=== PATIENT | female | born 1985 | race Caucasian/White ===

== ENCOUNTER 2016-06-30 10:25 | Inpatient (IN) | payer OTHER ==
[2016-06-30] MEDS: ELECTROLYTE-148 SOLN 1,000 ML IV SCH (10:35)
--- NOTE | 2016-06-30 10:56 | HP ---
Admitting History and Physical - Admission Chief Complaint: for cs History of Present Illness: 31 with breech for cs. Pt of [facility], hiv neg, gbs neg, rpr neg. Pt has been scanned by [facility]. 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: Alzheimer's, CVA, Dementia, Migraine, Multiple Sclerosis, Peripheral Neuropathy, Parkinson's, Seizure, Syncope, TIA, Vertigo, Other Cardiovascular: No: AFIB, Aneurysm, Aortic Insufficiency, Aortic Stenosis, CAD, CHF, Deep Vein Thrombosis, HTN, Hyperlipdemia, TN, Mitral Insufficiency, Mitral Stenosis, Murmur, Pulmonary Hypertension, Other Pulmonary: No: Asthma, Bronchitis, Cancer, COPD, O2 Dependent, Pneumonia, Previously Intubated, Pulmonary Embolus, Pulmonary Fibrosis, Sleep Apnea, Other Gastrointestinal: No: Ascites, Cancer, Constipation, Crohn's Disease, Diverticulitis, Diverticulosis, Esophageal Varices, Gastritis, GERD, GI Bleed, Hemorrhoids, Hiatal Hernia, Inflamatory Bowel Disease, Irritable Bowel Disease, Pancreatitis, Peptic Ulcer Disease, Ulcerative Colitis, Other Hepatobiliary: No: Cirrhosis, Cholelithiasis, Cholecystitis, Choledocholithiasis , Hepatitis A, Hepatitis B, Hepatitis C, Other Renal/: No: Renal Failure, Renal Inusuff, BPH, Cancer, Hematuria, Hemodialysis , Neurogenic Bladder, Renal Calculi, UTI, Other Reproductive: No: Ectopic , Endometriosis, Fibroids, PID, Polycystic Ovary Syndrome, Postmenopausal, Other Heme/Onc: No: Anemia, B12 Deficiency, Bleeding Disorder, Cancer, Current Chemotherapy, Current Radiation Therapy, Hemochromatosis, Hypercoaguable State, Myeloproliferative Synd, Sickle Cell Disease, Sickle Cell Trait, Thrombocytopenia, Other Infectious Disease: No: AIDS, C-Diff, Herpes Zoster, HIV, MRSA, STD's, Tuberculosis, VREF, Other Musculoskeletal: No: Bursitis, Chronic low back pain, Hemiparesis, Hemiplegia, Osteoarthritis, Paraplegia, Other ENT: No: Allergic Rhinitis, Sinusitis, Other Dermatology: No: Basal Cell, Cellulitis, Eczema, Melanoma, Psoriasis, Squamous Cell, Other - Past Surgical History Past Surgical History: No: None, AAA Repair, AICD, Amputation, Appendectomy, Arthrosocopy, AV Fistula/Graft, Bariatric Surgery, Breast Biopsy, Bypass, CABG, Carotid Endarterectomy, Cataract Removal, Cholecystectomy, Colectomy, Colonoscopy, Colostomy, Craniotomy, , Cystectomy, Hernia Repair, Hysterectomy, Ileal Conduit, Ileosotomy, Joint Replacement, Kidney Transplant, Laminectomy, Liver Transplant, Mastectomy, Nephrectomy, Oopherectomy, Orchiectomy, Permanent Pacemaker, Prostatectomy, Splenectomy, Stent, Thoracotomy , TURP, Tonsillectomy, Tubal Ligation, Upper Endoscopy, Valve Replacement, Vasectomy, Vein Stripping/Ligation - Advance Directives Advance Directives: No: Living Will, Health Care Proxy, DNR, Organ Donor, Tissue Donor, MOLST - Alcohol/Substance Use History of Substance Use: denies: None, Cocaine, Heroin, Marijuana, Prescription , Tranquilizers - Social History Usual Living Arrangement: No: Alone, With Spouse, With Parent, With Significant Other, With Child, Assisted Living, Senior Living, Other Review of Systems - Review of Systems Constitutional: denies: No Symptoms, Chills, Diaphoresis, Fever, Lethargy, Loss of Appetite, Malaise, Night Sweats, Unintentional Wgt. Loss, Weakness, Other Eyes: denies: No Symptoms, Blind Spots, Blurred Vision, Double Vision, Eye Pain , Floaters, Photophobia, Recent Change in Vision, Other HENT: denies: No Symptoms, Difficult Swallowing, Ear Discharge, Ear Pain, Epistaxis, Gingival Bleeding, Hearing Loss, Mouth Swelling, Nasal Congestion, Ocular Prosthesis, Throat Pain, Toothache, Ringing in Ears, Other Neck: denies: No Symptoms, Decreased ROM, Lumps, Pain on Movement, Stiffness, Swollen Glands, Tenderness, Other Cardiovascular: denies: No Symptoms, Chest Pain, Edema, Palpitations, Shortness of Breath, Other Respiratory: denies: No Symptoms, Cough, Exercise Intolerance, Hemoptysis, Orthopnea, PND, Snoring, SOB, SOB on Exertion, Wheezing, Other Gastrointestinal: denies: No Symptoms, Abdominal Pain, Bloating, Constipation, Diarrhea, Dysphagia, Indigestion, Melena, Nausea, Rectal Bleeding, Vomiting, Vomiting Blood, Other Genitourinary: denies: No Symptoms, Burning, Discharge, Dysuria, Flank Pain, Frequency, Hematuria, Incontinence, Lesions, Menses, Pain, Testicular Mass, Testicular Pain, Testicular Swelling, Urgency, Vaginal Bleeding, Other Breasts: denies: No Symptoms Reported, See HPI, Breast Implants, Discharge from Nipple, Lumps, Pain, Skin Changes, Other Integumentary: denies: No Symptoms, Blister, Bruising, Change in Color, Eczema, Erythema, Incision, Lesions, Lump, Pallor, Pruritis, Rash, Wound, Other Neurological: denies: No Symptoms, Change in LOC, Change in Speech, Confusion, Dizziness, Headache, Incoordination, Numbness, Parasthesia, Pre-Existing Deficit , Seizure, Syncope, Tremors, Unsteady Gait, Weakness, Other Endocrine: denies: No Symptoms, Excessive Sweating, Flushing, Increased Hunger, Increased Thirst, Intolerance to Cold, Intolerance to Heat, Unexplained Weight Gain, Unexplained Weight Loss, Other Hematology/Lymphatic: denies: No Symptoms, Easily Bruised, Excessive Bleeding, Swollen Glands, Other Physical Examination Constitutional: Yes: Well Nourished Eyes: Yes: WNL HENT: Yes: WNL Neck: Yes: WNL Cardiovascular: Yes: WNL Respiratory: Yes: WNL Gastrointestinal: Yes: WNL ...Rectal Exam: Yes: WNL Renal/: Yes: WNL Breast(s): Yes: WNL Assessment/Plan as sabove consents \labs
[2016-06-30 11:38] VITALS: BMI 28.5
[2016-06-30] MEDS ORDERED: morphine SULFATE/Preservative Free 0.5 MG/ML (1cc Syringe) SPIN ONE (12:41)
[2016-06-30] MEDS ORDERED: ONDANSETRON 4 MG/2 ML VIAL IVPB PRN (12:48)
[2016-06-30] MEDS ORDERED: IBUPROFEN 800 MG/8 ML IJ IVPB PRN (13:03)
[2016-06-30] MEDS ORDERED: CITRIC ACID/SODIUM CITRATE 30 ML UNIT-DOSE CUP PO ONE (13:03)
[2016-06-30] MEDS ORDERED: oxyCODONE HCL 5 MG TABLET PO PRN (13:03)
[2016-06-30] MEDS ORDERED: IBUPROFEN 600 MG TABLET (FP) PO PRN (13:03)
[2016-06-30] MEDS ORDERED: METHYLERGONOVINE MALEATE 0.2 MG/1 ML AMP IM PRN (13:03)
[2016-06-30] MEDS: OXYTOCIN 20 UNITS in 0.9% NS 1,000 ML IV SCH (14:16)
--- NOTE | 2016-07-01 07:52 | PN ---
Post Progress Note - Subjective Subjective: no c/o pain. voided once after soto is taken out . Post Day: 1 Type of Delivery: Primary C/S Vital Signs: Vital Signs Temperature 98.5 F 07/01/16 06:00 Pulse Rate 70 07/01/16 06:00 Respiratory Rate 20 07/01/16 06:00 Blood Pressure 101/72 07/01/16 06:00 O2 Sat by Pulse Oximetry (%) Breast Exam: Yes: Soft, Other (BF ). No: Engorged Uterus: Yes: Fundus Firm, Fundus below umbilicus, Non-tender Incision: Yes: Dressing dry and intact. No: Redness, Oozing Abdomen/GI: Yes: Abdomen soft (bs active ), Tolerating PO (clear liquids ). No : Abdominal Distention, Tender, Passing flatus Lochia: Yes: Rubra Lochia, amount: Moderate Extremities: Yes: Calves non-tender Perineum: Yes: Intact Activity: Ambulating Other Findings, Remarks: RS cta Assessment/Plan stable. plan : post op cbc today.
[2016-07-01 08:43] LABS: BASOPHIL 0.2 % (0-2.0); EOSINOPHIL 0.6 % (0-4.5); MCH 31.6 pg (25.7-33.7); MEAN CELL VOLUME 92.8 fl (80-96); NEUTROPHILS 79.3 % (42.8-82.8); PLATELET COUNT 206 K/MM3 (134-434); RDW 13.5 % (11.6-15.6); WHITE BLOOD COUNT 11.6 K/mm3 (4.0-10.0)
--- NOTE | 2016-07-01 11:19 | PN ---
Progress Note (short form) - Note Progress Note: ANESTHESIOLOGY POST-OP CHECK 31F s/p under spinal anesthesia, POD #1. No acute complaints. Denies pain, backache, headache, N/V, numbness, weakness. Tolerating PO fluids, ambulating,. Vital Signs Temperature 98.7 F 07/01/16 09:08 Pulse Rate 82 07/01/16 09:08 Respiratory Rate 20 07/01/16 10:00 Blood Pressure 112/57 07/01/16 09:08 O2 Sat by Pulse Oximetry (%) Active Medications Acetaminophen (Tylenol -) 650 mg PO Q4H PRN PRN Reason: FEVER OR PAIN Bisacodyl (Dulcolax Suppository -) 10 mg RC PRN PRN PRN Reason: CONSTIPATION Diphenhydramine HCl (Benadryl Injection -) 25 mg IVPUSH Q4H PRN PRN Reason: Pruritis Oxytocin/Sodium Chloride (Normal Saline+20 Units Oxytocin -) 1,000 mls @ 125 mls/hr IV [facility] Last Admin: 06/30/16 14:16 Dose: 125 mls/hr Parenteral Electrolytes (Plasma-Lyte 148 -) 1,000 mls @ 125 mls/hr IV [facility] Last Admin: 06/30/16 10:35 Dose: 125 mls/hr Ibuprofen (Motrin -) 600 mg PO Q4H PRN PRN Reason: PAIN Ibuprofen (Motrin -) 600 mg PO Q4H PRN PRN Reason: PAIN Ibuprofen (Caldolor Injection -) 800 mg IVPB Q8H PRN PRN Reason: PAIN OR FEVER Last Admin: 07/01/16 05:40 Dose: 800 mg Methylergonovine Maleate (Methergine Injection -) 0.2 mg IM Q4H PRN PRN Reason: Excessive Bleeding (L&D) Oxycodone HCl (Roxicodone -) 10 mg PO Q4H PRN PRN Reason: PAIN LEVEL 6-10 Simethicone (Mylicon -) 80 mg PO Q4H PRN PRN Reason: GAS Gen: Awake, alert Ext: No motor or sensory deficits of b/l lower ext. No apparent anesthesia complications. Pain well controlled. Continue management as per primary team.
[2016-07-01] MEDS ORDERED: BISACODYL 10 MG SUPP.RECT RC PRN (13:04)
[2016-07-01] MEDS: SIMETHICONE 80 MG TAB.CHEW (FP) PO PRN ×2 (14:44→22:05)
[2016-07-01] MEDS: IBUPROFEN 600 MG TABLET (FP) PO PRN ×2 (14:45→22:06)
[2016-07-01] MEDS: ACETAMINOPHEN 325 MG TABLET (FP) PO PRN ×2 (14:46→22:07)
--- NOTE | 2016-07-02 06:18 | PN ---
Post Progress Note Post Day: 2 Type of Delivery: Primary C/S Vital Signs: Vital Signs Temperature 98.2 F 07/01/16 22:00 Pulse Rate 99 H 07/01/16 22:00 Respiratory Rate 18 07/01/16 22:00 Blood Pressure 115/71 07/01/16 22:00 O2 Sat by Pulse Oximetry (%) Breast Exam: Yes: Soft Uterus: Yes: Fundus Firm Incision: Yes: Dressing dry and intact Abdomen/GI: Yes: Abdomen soft Lochia: Yes: Rubra Lochia, amount: Small Extremities: Yes: Calves non-tender Perineum: Yes: Intact Activity: Ambulating - Labs Labs: CBC WBC 11.6 K/mm3 (4.0-10.0) H 07/01/16 07:30 RBC 3.41 M/mm3 (3.60-5.2) L 07/01/16 07:30 Hgb 10.8 GM/dL (10.7-15.3) 07/01/16 07:30 Hct 31.7 % (32.4-45.2) L 07/01/16 07:30 MCV 92.8 fl (80-96) 07/01/16 07:30 MCHC 34.0 g/dl (32.0-36.0) 07/01/16 07:30 RDW 13.5 % (11.6-15.6) 07/01/16 07:30 Plt Count 206 K/MM3 (134-434) 07/01/16 07:30 MPV 8.0 fl (7.5-11.1) 07/01/16 07:30 Neutrophils % 79.3 % (42.8-82.8) 07/01/16 07:30 Lymphocytes % 11.1 % (8-40) D 07/01/16 07:30 Monocytes % 8.8 % (3.8-10.2) 07/01/16 07:30 Eosinophils % 0.6 % (0-4.5) 07/01/16 07:30 Basophils % 0.2 % (0-2.0) 07/01/16 07:30 Assessment/Plan doing well oob reg diet pain control
--- NOTE | 2016-07-02 08:15 | OP ---
DATE OF OPERATION: DATE OF DICTATION: 07/01/2016 HISTORY OF PRESENT ILLNESS: This is a 31-year-old female at 39+ weeks with breech presentation. POSTOPERATIVE DIAGNOSIS: This is a 31-year-old female at 39+ weeks with breech presentation. PROCEDURE: Primary section. OPERATING SURGEON: Manasa Kent MD TABLE CUT OFF SAW OPERATOR: MARSHALL Crawford COMPLICATIONS: None. FINDINGS: Single live , Apgars of 8 and 9, in urszula breech position, delivered with Pinard maneuvers. DISPOSITION: To recovery room in stable condition. DESCRIPTION OF PROCEDURE: Patient was consented prior to entering the operating suite. Patient was put on the table in dorsal supine position, prepped and draped in the usual sterile fashion. The transverse incision was made. This was carried down to the level of the fascia. The fascia was then transected to the left and right of midline. After the muscle and peritoneum, the gravid uterus was then identified. Transverse incision was made. The infant was then delivered in urszula breech presentation with the aid of the Pinard maneuvers. No nuchal cord was identified. After extraction of the fetus, the placenta had been removed. The inferior aspect of the uterus was cleaned with a semi-wet lap pad. The uterus was then closed in a double layer with Biosyn suture. The right and left paracolic gutters were inspected. There was no gross bleeding identified. The peritoneum with the muscle was then approximated. The fascia was then closed with Biosyn suture. The skin zain were applied. The patient was sent to the recovery room in stable alert condition. MANASA KENT M.D. ROMEO/[id number]
[2016-07-02] MEDS: SIMETHICONE 80 MG TAB.CHEW (FP) PO PRN ×2 (13:45→18:06)
[2016-07-02] MEDS: IBUPROFEN 600 MG TABLET (FP) PO PRN ×2 (13:45→18:07)
[2016-07-02] MEDS: ACETAMINOPHEN 325 MG TABLET (FP) PO PRN ×2 (13:46→18:06)
[2016-07-02] MEDS: ELECTROLYTE-148 SOLN 1,000 ML IV SCH (15:51)
[2016-07-02] MEDS: OXYTOCIN 20 UNITS in 0.9% NS 1,000 ML IV SCH (15:51)
[2016-07-03] MEDS: SIMETHICONE 80 MG TAB.CHEW (FP) PO PRN ×2 (07:14→16:40)
[2016-07-03] MEDS: IBUPROFEN 600 MG TABLET (FP) PO PRN ×2 (07:14→16:41)
[2016-07-03] MEDS: ACETAMINOPHEN 325 MG TABLET (FP) PO PRN ×2 (07:15→16:41)
--- NOTE | 2016-07-03 07:48 | PN ---
Progress Note (short form) - Note Progress Note: pod 3 doing well, ambulating CBC, BMP 07/01/16 07:30 Last Vital Signs Temp Pulse Resp BP Pulse Ox 98.8 F 94 H 20 110/56 07/02/16 21:28 07/02/16 21:28 07/02/16 21:28 07/02/16 21:28 abdomen soft, no distension, no cva incision dry, clean no calf tenderness . no excess vaginal bleeding plan ambulate observe
[2016-07-03 10:09] LABS: BASOPHIL 0.2 % (0-2.0); EOSINOPHIL 1.1 % (0-4.5); MCH 31.5 pg (25.7-33.7); MEAN CELL VOLUME 92.7 fl (80-96); MEAN PLT VOLUME 7.2 fl (7.5-11.1); NEUTROPHILS 79.1 % (42.8-82.8); PLATELET COUNT 227 K/MM3 (134-434); RDW 13.6 % (11.6-15.6); WHITE BLOOD COUNT 10.3 K/mm3 (4.0-10.0)
[2016-07-03] MEDS ORDERED: ACETAMINOPHEN/CAFFEINE/BUTALBITAL 1 TAB PO PRN (10:26)
--- NOTE | 2016-07-03 10:31 | PN ---
Progress Note (short form) - Note Progress Note: ANESTHESIOLOGY POST OP CHECK Called to bedside to evaluate patient headache. Patient reports frontal headache started this morning, positional in nature, relieved by laying down, reported vision changes associated with the headache. A decision was made to attempt a blood patch, risk and benefits were discussed and consent was obtained. The patient was pkaced in a seated position, back was prepped with betadine x3, sterile drape applied, arm was prepped with chloraprep and draped with sterile OR towels. L2-3 was palpated, lidocaine 1% skin infiltration, 17g tuohy, loss of resistance to air at 4cm, 20g angiocath introduced to L antecubital fossa, 20mL blood aspirated sterile technique, blood injected into epidural space 5ml at a time until 20ml was injected, patient reported mild discomfort during the injection. Discomfort resolved withing one minute. Patient was placed supine, reported relief of headache withing 15 minutes. Vital signs remained stable throughout procedure.
--- NOTE | 2016-07-03 17:05 | PATH ---
Surgical Pathology Report Patient Name: ARELI LOPEZ Med. Rec. 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 Specimen(s) Received PLACENTA Clinical History , 40 gestational weeks 2010-ovarian surgery Final Diagnosis PLACENTA, DELIVERY: FOCALLY DISRUPTED THIRD TRIMESTER PLACENTA WITH THREE VESSEL UMBILICAL CORD AND UNREMARKABLE PLACENTAL MEMBRANES. Electronically Signed Attila Ornelas M.D. Gross Description The specimen is received fresh labeled placenta and is a 411 gram, 20.0 x 18.5 x 1.6 cm. placenta with attached membranes and umbilical cord. The attached membranes are doyle, translucent with focal opacities and insert marginally. The umbilical cord measures 30 cm. in length and averages 1.2 cm. in diameter. The cord inserts centrally. No true knots or strictures are identified. Cut surface of the umbilical cord reveals 3 vessels. The surface is hermosillo-blue with minimal fibrin deposition and appropriate caliber vessels. The maternal surface is red-brown with focal defects. Sectioning reveals red-brown, spongy parenchyma. No lesions are identified. Assistant Branch Manager sections are submitted in three cassettes as follows: 1- membrane rolls and umbilical cord; 2-3- full thickness sections of placenta. /07/02/201607/02/2016
[2016-07-04 08:08] VITALS: BP 119/73; PULSE 96; TEMP 99.5
--- NOTE | 2016-07-04 09:01 | DS ---
Physical Exam-CORPORATE STRATEGY ANALYST Vital Signs: Vital Signs Temperature 99.5 F 07/04/16 08:06 Pulse Rate 96 H 07/04/16 08:06 Respiratory Rate 20 07/04/16 08:06 Blood Pressure 119/73 07/04/16 08:06 O2 Sat by Pulse Oximetry (%) Constitutional: Yes: Well Nourished Eyes: Yes: Conjunctiva Clear HENT: Yes: Atraumatic Neck: Yes: Supple, Trachea Midline Cardiovascular: Yes: Regular Rate and Rhythm Respiratory: Yes: Regular, CTA Bilaterally Gastrointestinal: Yes: Normal Bowel Sounds ...Rectal Exam: Yes: WNL Pelvis: Yes: WNL External Genitalia: Yes: Normal Vaginal Exam: Yes: Normal Cervix: Yes: Normal Uterus: Yes: Firm Wound/Incision: Yes: Clean/Dry, Well Approximated Neurological: Yes: Alert, Oriented ...Motor Strength: WNL Psychiatric: Yes: Alert, Oriented Labs: CBC, BMP 07/03/16 09:50 Delivery - Delivery Section: Primary Type of Anesthesia: Spinal Episiotomy/Laceration: None EBL (cc): 500 Delivery, Single - Stages of Labor Date of Delivery: 06/30/16 Time of Delivery: 12:51 Time Placenta Delivered: 12:53 - Condition of Radiator Mechanic/Table Games Floor Supervisor Present: Yes Name: Mook Meehan Infant Gender: Female Weight: 8 lb 2 oz Total Hours ROM (Hrs/Mins): 1min - 1 Minute Total Score: 8 5 Minutes Total Score: 9 - Feeding Plan Initial Plan: Elected not to breastfeed exclusively throughout hospitalization Discharge Summary Reason For Visit: PRIMARY SECTION Procedures: Principal: Primary Low Transverse Hospital Course: Routine Post op care Condition: Good - Instructions Diet, Activity, Other Instructions: see on for staple removal Referrals: Clovis Kent MD [Staff Physician] - Disposition: HOME - Home Medications Comprehensive Discharge Medication List: Ambulatory Orders Vitamins (Sjr) - 1 tab PO DAILY 06/30/16 Ibuprofen [Motrin -] 600 mg PO TID #21 tablet 07/02/16
== END 2016-07-04 12:00 | disposition home or self-care (01) | DRG 540 ==
LOC: JLDR 10:25 → J3W 15:02
PROVIDERS: ADMIT Obstetrics & Gynecology; ATTEND Obstetrics & Gynecology
PROC: 10D00Z1 Extraction of Products of Conception, Low, Open Approach (ICD-10-PCS; principal; 2016-07-01)
PROC: 3E0R3GC Introduction of Other Therapeutic Substance into Spinal Canal, Percutaneous Approach (ICD-10-PCS; 2016-07-03)
DX: O32.1XX0 Maternal care for breech presentation, not applicable or unspecified (principal); Z3A.39 39 weeks gestation of pregnancy; Z37.0 Single live birth; R51 Headache
CPT/HCPCS: 36415; 71020-TC; 80048; 85025; 85610; 85730; 86593; 86850; 86900; 86901; 88307-TC